=== PATIENT | female | born 1990 | race Two or more races ===

== ENCOUNTER 2020-01-29 09:01 | Inpatient (IN) ==
[2020-01-29] MEDS ORDERED: CEFAZOLIN 2000MG 2,000 MG/15 ML SYR IV SCH (09:15)
[2020-01-29] MEDS ORDERED: LACTATED RINGER'S 1,000 ML IV SCH (09:15)
[2020-01-29] MEDS ORDERED: OXYTOCIN 30 UNITS/500 ML BAG IV PRN ×3 (09:22→23:19)
[2020-01-29 09:32] LABS: Basophils # (auto) 0.01 K/uL (0-0.2); Basophils % (auto) 0.2 %; Eosinophils # (auto) 0.05 K/uL (0-0.5); Eosinophils % (auto) 0.8 %; Hematocrit (blood only) 38.9 % (37-47); Hemoglobin 13.4 g/dL (12.0-16.0); Lymphocytes # (auto) 1.32 K/uL (1.2-3.4); Lymphocytes % (auto) 22.2 %; Mean Corpuscular Hemoglobin 31.7 pg (25-34); Mean Platelet Volume 10.8 fL (7.4-10.4); Monocytes # (auto) 0.51 K/uL (0.11-0.59); Monocytes % (auto) 8.6 %; Neutrophils # (auto) 4.06 K/uL (1.4-6.5); Neutrophils % (auto) 68.2 %; Platelet Count 226 K/uL (130-400); RDW Coefficient of Variation 12.9 % (11.5-14.5); RDW Standard Deviation 43.4 fL (36.4-46.3); Red Blood Count 4.23 M/uL (4.2-5.4); White Blood Count 5.95 K/uL (4.8-10.8)
--- NOTE | 2020-01-29 09:34 | History & Physical Report ---
Date of Service January 29, 2020 Assessment & Plan (1) Supervision of normal intrauterine in primigravida: (2) GBS (group B Streptococcus carrier), +RV culture, currently : (3) Unstable lie of fetus: admit, iv, labs. given now cephalic but high, rec induction with pitocin t o try to keep cephalic in pelvis. pt agreeable. pcn for gbs. discussed mgmt of pain in labor. spouse and pt deny further questions. she did originally ask about leaving and waiting and i told her she could but my concern is that the baby would turn again and would moreso rec induction now. she agrees. fhts categ 1. Admission and Anticipated Discharge Date Admission Date: January 29, 2020 History of Present Illness Chief Complaint: planned c/s for breech. Primary Care Provider: [facility] 29yo at 40+wks sheri presents to L&D for above cc. She was found to be breech yesterday at office and counseld re: ECV vs. direct c/s. Overnight she called MD application architect and indicated she did not want ECV, just wanted c/s. Denies rom, vb. ctx. She is nervous. PNC c/b 1. GBS pos 2. malpresentation PNL rh pos, ri, gbs neg All Active Problems (Updated 01/29/20 @ 09:32 by Jane Ram MD, FACOG) Back pain affecting GBS (group B Streptococcus carrier), +RV culture, currently H/O miscarriage, currently Supervision of normal intrauterine in primigravida Allergies Allergy/AdvReac Type Severity Reaction Status Date / Time No Known Allergies Allergy Verified 01/28/20 09:36 Home Medications Home Medications Medication Instructions Recorded Confirmed Type prenat.vits,je,epv-sluh-afchj 1 tab PO DAILY 06/17/19 01/29/20 History cephalexin [Keflex] 500 mg PO Q6H 7 Days #28 cap 01/26/20 01/29/20 Rx Patient History Medical History (Updated 01/29/20 @ 09:36 by Jane Ram MD, FACOG) Encounter for pre-operative examination Missed No pertinent past medical history Varicella Surgical History No pertinent past surgical history Family History (Updated 01/29/20 @ 09:07 by Morena Merlos RN) Father Hypertension Social History (Updated 06/17/19 @ 10:58 by Arabella Magdaleno) Smoking Status: Never smoker Second Hand Exposure: No; Hx Alcohol Use: No Hx Substance Use: No Preferred Language: Mexican Communication Ability: Impaired marital status: marital status details: Ana Johansen (30) [phone] Current Living Situation: Spouse current occupational status: student 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 @ [employer] Feels Safe at Home: Yes OB History SAB x 1 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 no 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 Review of Systems per hpi Physical Exam Constitutional: WD/WN, vitals as above Respiratory: normal respiratory effort, lungs clear to auscultation Cardiovascular: Rate/Rhythm: regular rate and regular rhythm Gastrointestinal (Abdomen): Percussion/Palpation: abdomen soft (gravid); abdomen nontender Musculoskeletal: nt calves Neurologic: grossly normal Psychiatric: A+Ox3, euthymic affect Genitourinary: normal external appearance OB Exam Abdomen: + vertex (by U/S) and + estimated weight (7-8#) Manual OB Exam: + cervical dilation (2), + cervical effacement 50% and + station high OB Exam Monitor Tracing: + external FHT monitor used (125 mod variability reactive), + external uterine monitor used (irrit), + category I and + normal FHT variability Coding Level of Care Code None Diagnoses Supervision of normal intrauterine in primigravida Z34.00 GBS (group B Streptococcus carrier), +RV culture, currently O99.820 Unstable lie of fetus O32.0XX0
[2020-01-29 09:44] LABS: Mean Corpuscular Hgb Conc 34.4 g/dL (32-36)
--- NOTE | 2020-01-29 09:58 | Medical Student H&P ---
Date of Service January 29, 2020 Assessment & Plan Admission and Anticipated Discharge Date Admission Date: January 29, 2020 1) Unstable lie: Continue to monitor, begin induction with pitocin. Administer epidural/pain meds per patient request. It was discussed that fetus could ptoentially turn again in utero. 2) Normal intrauterine : Continue to monitor. External fHT monitor + external uterine monitor History of Present Illness Chief Complaint: CC: C/S for breech presentation Primary Care Provider: [facility] Julián is a 29 year old at 40wk 08/04 who presented today for a , as her baby was found to be in breech position yesterday. ECV was discussed as an option, but patient opted for C/S instead. L&D US this morning, showed that fetus is now in vertex position. Potential for fetus to return to breech was discussed. Julián and partner have agreed to begin induction. She seems nervous GBS +, +RV culture, rh + Allergies Allergy/AdvReac Type Severity Reaction Status Date / Time No Known Allergies Allergy Verified 01/28/20 09:36 Home Medications Home Medications Medication Instructions Recorded Confirmed Type prenat.vits,je,dsr-igix-ikuij 1 tab PO DAILY 06/17/19 01/29/20 History cephalexin [Keflex] 500 mg PO Q6H 7 Days #28 cap 01/26/20 01/29/20 Rx Patient History Medical History (Updated 01/29/20 @ 09:36 by Jane Ram MD, FACOG) Encounter for pre-operative examination Missed No pertinent past medical history Varicella Surgical History No pertinent past surgical history Family History (Updated 01/29/20 @ 09:07 by Morena Merlos RN) Father Hypertension Social History Smoking Status: Never smoker Second Hand Exposure: No; Hx Alcohol Use: No Hx Substance Use: No Preferred Language: Macanese Communication Ability: Effective [employer] Labourer Required: No Beliefs That Will Affect Care: None marital status: marital status details: Ana Johansen (30) [phone] Current Living Situation: Spouse current occupational status: student 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 @ [employer] Other Information That Helps Us Care for You: No Feels Safe at Home: Yes Assistive Devices: None OB History Hx spontaneous HEAD OF ACQUISITIONS History No Hx STDs Review of Systems All systems reviewed & are unremarkable except as noted in HPI & below no fever/chills no blurry vision or spots or eye pain no cough or difficulty breathing Additional Comments: no chest pain no nausea/vomiting no joint pain/muscle weakness no numbness or other abnormality noted seems slightly nervous about delivery Physical Exam Physical Exam: cardiac: RRR, Normla S1/S2 Resp: lungs CTA bilat GI: Abdomen soft, gravid, non tender Neurologic: Alert and oriented. Grossly normal MSK: Minimal pedal edema noted. Calves non tender : + vertex by US, +cervical effacement and dilitation Results & Data ([facility]) Vital Signs (Past 12 Hours) BP: 111/63 Pulse: 125 Resp: 20 Temp: 36.8
[2020-01-29] MEDS ORDERED: PENICILLIN G POTASSIUM 6 MU in DEXTROSE 5% 250 ML IV ONE (10:00)
[2020-01-29] MEDS: LACTATED RINGER'S 1,000 ML IV PRN ×3 (10:04→21:34)
[2020-01-29] MEDS: PENICILLIN G POTASSIUM 3 MU in DEXTROSE 5% 100 ML IV PRN ×3 (13:43→21:34)
[2020-01-29] MEDS ORDERED: ACETAMINOPHEN 325 MG TAB PO ONE (14:18)
[2020-01-29] MEDS: LACTATED RINGER'S 1,000 ML IV SCH (14:52)
--- NOTE | 2020-01-29 16:33 | Labor Progress Brief Note ---
Date of Service January 29, 2020 Subjective Reason For Note: Routine Evaluation called by nurse as pt now with regular ctx that are painful. Assessment & Plan (1) Supervision of normal intrauterine in primigravida: (2) GBS (group B Streptococcus carrier), +RV culture, currently : arom performed. pt to not ambulate until exam again. c/ w pit, fhts categ1 . Admission and Anticipated Discharge Date Admission Date: January 29, 2020 Physical Exam Constitutional: WD/WN, vitals as above Genitourinary: Manual OB Exam: + cervical dilation (2-3), + cervical effacement 70%, + station high and + amniotic fluid (amniocot, used to arom. ) clear OB Exam Monitor Tracing: + external FHT monitor used (130 mod variability, ), + external uterine monitor used (q2), + category I and + normal FHT variability Results & Data ([place]) Vital Signs (Past 12 Hours) Vital Signs Temp Pulse Resp BP 01/29/20 16:30 95 H 109/67 01/29/20 15:18 77 112/70 01/29/20 15:10 98.2 F 20 01/29/20 14:18 80 119/69 01/29/20 13:18 82 20 131/79 01/29/20 12:17 86 20 117/74 01/29/20 11:17 83 20 110/62 01/29/20 10:17 82 20 113/59 L 01/29/20 09:10 98.2 F 125 H 20 111/63 01/29/20 09:03 98.2 F 20 Coding Level of Care Code None Diagnoses Supervision of normal intrauterine in primigravida Z34.00 GBS (group B Streptococcus carrier), +RV culture, currently O99.820
--- NOTE | 2020-01-29 16:48 | Labor Progress Brief Note ---
Date of Service January 29, 2020 Subjective Reason For Note: Requested By RN fhts decreased, pit was off by time i was in room. nurse applying O2 Assessment & Plan (1) GBS (group B Streptococcus carrier), +RV culture, currently : (2) Supervision of normal intrauterine in primigravida: (3) Unstable lie of fetus: cephalic on exam. fhts now improved. will resume pitocin after watching fetus for about 30min if stable. fse explained to couple. explained our interventions and reasons why. pcn for gbs. Admission and Anticipated Discharge Date Admission Date: January 29, 2020 Physical Exam Constitutional: WD/WN, vitals as above Genitourinary: OB Exam Abdomen: + vertex Manual OB Exam: + cervical dilation 3 cm, + cervical effacement 80% and + station -2 OB Exam Monitor Tracing: + external FHT monitor used (fhts ? 80s when in room, +scalp stim response), + scalp electrode used (140s with fse) and + external uterine monitor used (q2) Results & Data ([place]) Vital Signs (Past 12 Hours) Vital Signs Temp Pulse Resp BP 01/29/20 16:30 95 H 109/67 01/29/20 15:18 77 112/70 01/29/20 15:10 98.2 F 20 01/29/20 14:18 80 119/69 01/29/20 13:18 82 20 131/79 01/29/20 12:17 86 20 117/74 01/29/20 11:17 83 20 110/62 01/29/20 10:17 82 20 113/59 L 01/29/20 09:10 98.2 F 125 H 20 111/63 01/29/20 09:03 98.2 F 20 Coding Level of Care Code None Diagnoses GBS (group B Streptococcus carrier), +RV culture, currently O99.820 Supervision of normal intrauterine in primigravida Z34.00 Unstable lie of fetus O32.0XX0
--- NOTE | 2020-01-29 18:35 | Labor Progress Brief Note ---
Date of Service January 29, 2020 Subjective Reason For Note: Requested By Patient pt notes feeling ctx. feels her fluid leaking and wants to see if everything ok. she is wondering if i can stretch her cervix and make sure head still down because she feels lump in her left upper quad Assessment & Plan (1) Supervision of normal intrauterine in primigravida: (2) GBS (group B Streptococcus carrier), +RV culture, currently : (3) Unstable lie of fetus: reassured patient that baby is still cephalic. rec we cont with pitocin. i don't rec reexamining her at this time due to recent exam and not really an expectation for something different. explained how with water broken we do try to limit exams. fhts categ 1. they also ask about timing of epidural--explained can request anytime, since we are giving her labor with pitocin, really up to her. Admission and Anticipated Discharge Date Admission Date: January 29, 2020 Physical Exam Constitutional: WD/WN, vitals as above Genitourinary: OB Exam Abdomen: + vertex (by U/S) OB Exam Monitor Tracing: + external FHT monitor used (125 mod variability), + external uterine monitor used (q2), + category I and + normal FHT variability Results & Data ([place]) Vital Signs (Past 12 Hours) Vital Signs Temp Pulse Resp BP Pulse Ox 01/29/20 18:29 78 97 01/29/20 18:24 76 97 01/29/20 18:19 78 98 01/29/20 18:17 76 110/64 01/29/20 18:14 89 97 01/29/20 18:09 78 98 01/29/20 18:04 82 98 01/29/20 17:59 75 98 01/29/20 17:54 78 99 01/29/20 17:49 77 96 01/29/20 17:44 80 98 01/29/20 17:39 84 96 01/29/20 17:17 77 113/59 L 01/29/20 16:30 98.2 F 95 H 20 109/67 01/29/20 15:18 77 112/70 01/29/20 15:10 98.2 F 20 01/29/20 14:18 80 119/69 01/29/20 13:18 82 20 131/79 01/29/20 12:17 86 20 117/74 01/29/20 11:17 83 20 110/62 01/29/20 10:17 82 20 113/59 L 01/29/20 09:10 98.2 F 125 H 20 111/63 01/29/20 09:03 98.2 F 20 Coding Level of Care Code None Diagnoses Supervision of normal intrauterine in primigravida Z34.00 GBS (group B Streptococcus carrier), +RV culture, currently O99.820 Unstable lie of fetus O32.0XX0
[2020-01-29] MEDS ORDERED: ePHEDrine sulfate 50 MG/ML AMP ONE (18:47)
[2020-01-29] MEDS ORDERED: BUPIVACAINE 0.25% 30 ML VIAL ONE (18:48)
[2020-01-29] MEDS ORDERED: fentaNYL 2MCG/ML ROPIV 1.25MG/ML 100 ML BAG EPI ONE (18:48)
[2020-01-29] MEDS ORDERED: fentaNYL citrate 100 MCG/2 ML VIAL ONE (18:48)
[2020-01-29] MEDS ORDERED: ONDANSETRON INJ 2 MG/ML 2 ML VIAL IV PRN (19:42)
[2020-01-29] MEDS ORDERED: NALOXONE HCL 1 MG in SODIUM CHLORIDE 0.9% 1000ML 1,000 ML IV PRN (19:42)
[2020-01-29] MEDS ORDERED: ePHEDrine sulfate 50 MG/ML AMP IV PRN (19:42)
[2020-01-29] MEDS ORDERED: DiphenhydrAMINE HCL 50 MG/ML VIAL IV PRN (19:42)
[2020-01-29] MEDS ORDERED: PROMETHAZINE HCL 6.25 MG in SODIUM CHLORIDE 0.9% 50 ML IV PRN (19:42)
[2020-01-29] MEDS ORDERED: NALOXONE HCL 0.4 MG/1 ML VIAL/CARP IV PRN (19:42)
--- NOTE | 2020-01-29 19:42 | Anesthesiology Consultation ---
Date of Service January 29, 2020 Assessment & Plan (1) Encounter for pre-operative examination: Chart Review Chart Review: Patient NOT seen in Pre Admission Testing and Acceptable Risk for Labor Epidural Consults Requested none ASA ASA2 Proposed Anesthesia Anesthesia Type: Labor Epidural Risk / Benefits Reviewed With: PT / POA / Parent / Guardian, Accepts Plan and Informed Consent Obtained History Height/Weight Height: 5 ft 4 in Weight: 79.746 kg Allergies Allergy/AdvReac Type Severity Reaction Status Date / Time No Known Allergies Allergy Verified 01/28/20 09:36 Medications Home Medications Medication Instructions Recorded Confirmed Last Taken prenat.vits,je,nkr-jluq-iguoe 1 tab PO DAILY 06/17/19 01/29/20 01/27/20 08:00 cephalexin [Keflex] 500 mg PO Q6H 7 Days #28 cap 01/26/20 01/29/20 01/28/20 22:00 Active Medications Generic Name Dose Route Start Last Admin Trade Name Freq PRN Reason Stop Dose Admin Lactated Ringer's 1,000 mls @ 125 mls/hr 01/29/20 10:07 01/29/20 14:52 Lr IV 02/28/20 10:06 Not Given .Q8H REBECCA Lactated Ringer's 1,000 mls @ 125 mls/hr 01/29/20 09:22 01/29/20 19:23 Lr IV 01/31/20 09:21 125 mls/hr .Q8H PRN Infusion L&D Protocol Protocol Penicillin G Potassium 3 mu/ 106 mls @ 100 mls/hr 01/29/20 09:22 01/29/20 17: 43 Dextrose IV 02/08/20 09:21 100 mls/hr Q4H PRN Administration Give until delivery Oxytocin 30 units in 500 mls @ 12 mls/hr 01/29/20 09:45 01/29/20 19:20 Pitocin IV 01/31/20 09:44 0.72 units/hr .Q24H PRN 12 mls/hr Labor Induction/Augmentation Titration Protocol 0.72 UNITS/HR NPO Date Last Intake of Fluids: 01/29/20 Time Last Intake of Fluids: 17:00 Date Last Intake of Solids: 01/28/20 Time Last Intake of Solids: 21:00 Past Medical History Medical History (Updated 01/29/20 @ 09:36 by Jane Ram MD, FACOG) Encounter for pre-operative examination Missed No pertinent past medical history Varicella Exercise / Class Metabolic Activity II 4-5 Yardwork/Stairs/Walk up hill Past Family History Family History (Updated 01/29/20 @ 09:07 by Morena Merlos, JIM) Father Hypertension Past Surgical History Surgical History No pertinent past surgical history Past Anesthesia History No Hx of Anesthesia Complications and No Family Hx of Anesthesia Complications History of PONV No Hx of PONV and No Hx of Motion Sickness Social History Smoking Status: Never smoker Hx Alcohol Use: No Hx Substance Use: No substance use type: does not use Physical Exam Vital Signs Last Vital Signs Temp 36.8 C 01/29/20 16:30 Pulse 75 01/29/20 19:39 Resp 20 01/29/20 16:30 BP 108/57 L 01/29/20 19:36 Pulse Ox 97 01/29/20 19:39 ENMT Mouth: no dentition abnormality Thyromental Distance: > or= 3.5 Finger Breadths Mallampati Class: II Neck normal visual inspection Respiratory normal respiratory effort Auscultation: lungs clear to auscultation bilaterally Cardiovascular Rate/Rhythm: regular rate and regular rhythm Psychiatric Orientation: alert Testing Laboratory Results 01/29/20 09:23 Blood Type O Positive 01/29/20 09:23 Antibody Screen NEGATIVE 01/29/20 09:23
--- NOTE | 2020-01-29 21:36 | Labor Progress Brief Note ---
Date of Service January 29, 2020 Subjective Reason For Note: Routine Evaluation pt comfortable. ctx regular but difficult to assess strength due to her size, nursing request iupc if cx not much changed. Assessment & Plan (1) Supervision of normal intrauterine in primigravida: (2) GBS (group B Streptococcus carrier), +RV culture, currently : (3) Unstable lie of fetus: c/w pit, monitor mvu's, fhts categ 1. small cx change. reviewed with couple need to take time. Addendum: nursing came out to tell me she shut off pit due to concern for ctx. mvu's >200 after iupc placed. fetus with ? early decels,? late. variabilty good. will give 30min for in utero resuscitation and then restart pitocin at 1/2. couple made aware by nursing that i am aware of the situation as i was busy attending to other patients. Admission and Anticipated Discharge Date Admission Date: January 29, 2020 Physical Exam Constitutional: WD/WN, vitals as above Genitourinary: Manual OB Exam: + cervical dilation (3-4), + cervical effacement (75%) and + station -2 OB Exam Monitor Tracing: + scalp electrode used (130 mod variability), + external uterine monitor used (q2), + intra-uterine pressure catheter used (placed), + category I and + normal FHT variability Results & Data ([facility]) Vital Signs (Past 12 Hours) Vital Signs Temp Pulse Resp BP Pulse Ox 01/29/20 21:29 60 100 01/29/20 21:25 66 108/62 01/29/20 21:24 68 100 01/29/20 21:19 64 98 01/29/20 21:14 65 99 01/29/20 21:10 69 109/53 L 01/29/20 21:09 61 98 01/29/20 21:04 81 97 01/29/20 20:59 77 95 01/29/20 20:56 85 93/53 L 01/29/20 20:54 75 95 01/29/20 20:49 69 95 01/29/20 20:46 20 01/29/20 20:44 77 96 01/29/20 20:39 77 102/56 L 97 01/29/20 20:34 82 96 01/29/20 20:31 20 01/29/20 20:29 76 95 01/29/20 20:24 73 97 01/29/20 20:22 74 113/70 01/29/20 20:19 76 97 01/29/20 20:14 73 118/67 99 01/29/20 20:12 66 117/66 01/29/20 20:09 73 100 01/29/20 20:06 71 118/81 01/29/20 20:04 73 98 01/29/20 20:01 20 01/29/20 20:00 71 120/65 01/29/20 19:59 84 100 01/29/20 19:56 72 113/73 01/29/20 19:54 85 99 01/29/20 19:50 74 112/59 L 01/29/20 19:49 75 99 01/29/20 19:46 76 20 110/55 L 01/29/20 19:44 73 98 01/29/20 19:41 74 107/60 01/29/20 19:39 75 97 01/29/20 19:36 98.2 F 74 108/57 L 01/29/20 19:34 74 97 01/29/20 19:31 78 110/58 L 01/29/20 19:29 76 104/56 L 98 01/29/20 19:27 77 104/58 L 01/29/20 19:25 76 101/61 01/29/20 19:24 80 98 01/29/20 19:23 75 99/57 L 01/29/20 19:21 78 107/57 L 01/29/20 19:19 90 101/60 98 01/29/20 19:17 74 112/58 L 01/29/20 19:15 71 110/65 01/29/20 19:14 76 99 01/29/20 19:13 73 112/69 01/29/20 19:09 75 100 01/29/20 19:04 90 99 01/29/20 18:59 79 98 01/29/20 18:54 76 99 01/29/20 18:49 76 99 01/29/20 18:44 74 98 01/29/20 18:39 81 97 01/29/20 18:34 80 97 01/29/20 18:29 78 97 01/29/20 18:24 76 97 01/29/20 18:19 78 98 01/29/20 18:17 76 110/64 01/29/20 18:14 89 97 01/29/20 18:09 78 98 01/29/20 18:04 82 98 01/29/20 17:59 75 98 01/29/20 17:54 78 99 01/29/20 17:49 77 96 01/29/20 17:44 80 98 01/29/20 17:39 84 96 01/29/20 17:30 98.4 F 20 01/29/20 17:17 77 113/59 L 01/29/20 16:30 98.2 F 95 H 20 109/67 01/29/20 15:18 77 112/70 01/29/20 15:10 98.2 F 20 01/29/20 14:18 80 119/69 01/29/20 13:18 82 20 131/79 01/29/20 12:17 86 20 117/74 01/29/20 11:17 83 20 110/62 01/29/20 10:17 82 20 113/59 L Coding Level of Care Code None Diagnoses Supervision of normal intrauterine in primigravida Z34.00 GBS (group B Streptococcus carrier), +RV culture, currently O99.820 Unstable lie of fetus O32.0XX0
[2020-01-30] MEDS: PENICILLIN G POTASSIUM 3 MU in DEXTROSE 5% 100 ML IV PRN ×3 (01:30→09:24)
[2020-01-30] MEDS ORDERED: OR MISCELLANEOUS MED XX ONE (03:30)
--- NOTE | 2020-01-30 03:37 | Labor Progress Brief Note ---
Date of Service January 30, 2020 Subjective Reason For Note: Routine Evaluation feels some pressure. Assessment & Plan (1) Supervision of normal intrauterine in primigravida: (2) GBS (group B Streptococcus carrier), +RV culture, currently : good cx change. will attempt amnioinfusion as sometimes variables deep and remote from delivery. fhts categ 2. explained all to patient and partner. c/w pitocin. Admission and Anticipated Discharge Date Admission Date: January 29, 2020 Physical Exam Constitutional: WD/WN, vitals as above Genitourinary: Manual OB Exam: + cervical dilation (6), + cervical effacement 80% and + station 0 OB Exam Monitor Tracing: + scalp electrode used (130 mod variability), + intra-uterine pressure catheter used (q2-3), + category II, + normal FHT variability and + variable decelerations Results & Data ([facility]) Vital Signs (Past 12 Hours) Vital Signs Temp Pulse Resp BP Pulse Ox 01/30/20 03:29 73 100 01/30/20 03:25 67 116/69 01/30/20 03:24 74 100 01/30/20 03:19 76 99 01/30/20 03:14 82 99 01/30/20 03:11 74 108/59 L 01/30/20 03:09 78 97 01/30/20 03:04 79 98 01/30/20 02:59 77 98 01/30/20 02:55 72 91/56 L 01/30/20 02:54 71 98 01/30/20 02:49 78 97 01/30/20 02:44 80 99 01/30/20 02:40 63 108/59 L 01/30/20 02:39 64 96 01/30/20 02:34 74 95 01/30/20 02:31 80 94 01/30/20 02:29 92 H 95 01/30/20 02:24 96 H 92/54 L 96 01/30/20 02:19 76 96 01/30/20 02:14 75 95 01/30/20 02:10 70 120/63 01/30/20 02:09 71 96 01/30/20 02:04 77 95 01/30/20 01:59 76 96 01/30/20 01:54 70 117/65 96 01/30/20 01:49 79 96 01/30/20 01:44 85 95 01/30/20 01:41 77 94 01/30/20 01:39 91 H 104/56 L 95 01/30/20 01:35 74 94 01/30/20 01:34 74 95 01/30/20 01:30 98.2 F 18 01/30/20 01:29 109 H 96 01/30/20 01:25 63 105/59 L 01/30/20 01:24 76 95 01/30/20 01:19 76 95 01/30/20 01:15 76 94 01/30/20 01:14 91 H 96 01/30/20 01:10 79 114/55 L 01/30/20 01:09 79 96 01/30/20 01:04 77 95 01/30/20 01:03 77 94 01/30/20 00:59 92 H 94 01/30/20 00:55 103 H 82/50 L 01/30/20 00:54 68 95 01/30/20 00:51 87 93 01/30/20 00:49 110 H 94 01/30/20 00:45 108 H 94 01/30/20 00:44 79 95 01/30/20 00:39 109 H 86/50 L 94 01/30/20 00:36 80 92 01/30/20 00:34 75 95 01/30/20 00:30 70 94 01/30/20 00:29 73 95 01/30/20 00:25 75 108/57 L 01/30/20 00:24 72 94 01/30/20 00:19 76 94 01/30/20 00:14 75 96 01/30/20 00:09 96 H 92/54 L 97 01/30/20 00:04 72 96 01/29/20 23:59 88 97 01/29/20 23:55 68 125/59 L 01/29/20 23:54 75 94 01/29/20 23:49 72 97 01/29/20 23:44 75 98 01/29/20 23:39 110 H 108/57 L 96 01/29/20 23:34 107 H 98 01/29/20 23:30 98.2 F 18 01/29/20 23:29 82 97 01/29/20 23:25 76 107/55 L 01/29/20 23:24 79 96 01/29/20 23:21 75 94 01/29/20 23:19 92 H 97 01/29/20 23:14 71 96 01/29/20 23:09 74 118/60 97 01/29/20 23:04 76 97 01/29/20 23:01 20 01/29/20 22:59 84 98 01/29/20 22:54 73 109/63 97 01/29/20 22:49 70 96 01/29/20 22:44 68 98 01/29/20 22:41 77 120/71 01/29/20 22:39 72 96 01/29/20 22:34 70 97 01/29/20 22:31 20 01/29/20 22:29 60 97 01/29/20 22:24 60 111/62 97 01/29/20 22:19 76 97 01/29/20 22:14 79 97 01/29/20 22:09 64 111/62 98 01/29/20 22:04 74 98 01/29/20 22:01 20 01/29/20 21:59 70 98 01/29/20 21:55 74 111/57 L 01/29/20 21:54 76 97 01/29/20 21:49 75 98 01/29/20 21:44 69 98 01/29/20 21:39 76 100 01/29/20 21:34 63 100 01/29/20 21:31 98.1 F 20 01/29/20 21:29 60 100 01/29/20 21:25 66 108/62 01/29/20 21:24 68 100 01/29/20 21:19 64 98 01/29/20 21:14 65 99 01/29/20 21:10 69 109/53 L 01/29/20 21:09 61 98 01/29/20 21:04 81 97 01/29/20 21:01 20 01/29/20 20:59 77 95 01/29/20 20:56 85 93/53 L 01/29/20 20:54 75 95 01/29/20 20:49 69 95 01/29/20 20:46 20 01/29/20 20:44 77 96 01/29/20 20:39 77 102/56 L 97 01/29/20 20:34 82 96 01/29/20 20:31 20 01/29/20 20:29 76 95 01/29/20 20:24 73 97 01/29/20 20:22 74 113/70 01/29/20 20:19 76 97 01/29/20 20:14 73 118/67 99 01/29/20 20:12 66 117/66 01/29/20 20:09 73 100 01/29/20 20:06 71 118/81 01/29/20 20:04 73 98 01/29/20 20:01 20 01/29/20 20:00 71 120/65 01/29/20 19:59 84 100 01/29/20 19:56 72 113/73 01/29/20 19:54 85 99 01/29/20 19:50 74 112/59 L 01/29/20 19:49 75 99 01/29/20 19:46 76 20 110/55 L 01/29/20 19:44 73 98 01/29/20 19:41 74 107/60 01/29/20 19:39 75 97 01/29/20 19:36 98.2 F 74 108/57 L 01/29/20 19:34 74 97 01/29/20 19:31 78 110/58 L 01/29/20 19:29 76 104/56 L 98 01/29/20 19:27 77 104/58 L 01/29/20 19:25 76 101/61 01/29/20 19:24 80 98 01/29/20 19:23 75 99/57 L 01/29/20 19:21 78 107/57 L 01/29/20 19:19 90 101/60 98 01/29/20 19:17 74 112/58 L 01/29/20 19:15 71 110/65 01/29/20 19:14 76 99 01/29/20 19:13 73 112/69 01/29/20 19:09 75 100 01/29/20 19:04 90 99 01/29/20 18:59 79 98 01/29/20 18:54 76 99 01/29/20 18:49 76 99 01/29/20 18:44 74 98 01/29/20 18:39 81 97 01/29/20 18:34 80 97 01/29/20 18:29 78 97 01/29/20 18:24 76 97 10/01/20 18:19 78 98 01/29/20 18:17 76 110/64 01/29/20 18:14 89 97 01/29/20 18:09 78 98 01/29/20 18:04 82 98 01/29/20 17:59 75 98 01/29/20 17:54 78 99 01/29/20 17:49 77 96 01/29/20 17:44 80 98 01/29/20 17:39 84 96 01/29/20 17:30 98.4 F 20 01/29/20 17:17 77 113/59 L 01/29/20 16:30 98.2 F 95 H 20 109/67 Coding Level of Care Code None Diagnoses Supervision of normal intrauterine in primigravida Z34.00 GBS (group B Streptococcus carrier), +RV culture, currently O99.820
[2020-01-30] MEDS: fentaNYL 2MCG/ML ROPIV 1.25MG/ML 100 ML BAG EPI PRN ×2 (03:47→11:13)
[2020-01-30] MEDS: LACTATED RINGER'S 1,000 ML IV PRN (07:17)
--- NOTE | 2020-01-30 07:44 | Labor Progress Brief Note ---
Date of Service January 30, 2020 Subjective Reason For Note: Routine Evaluation pt with some abdominal pain and back pain. no rectal pressure Assessment & Plan (1) Supervision of normal intrauterine in primigravida: (2) GBS (group B Streptococcus carrier), +RV culture, currently : (3) Unstable lie of fetus: good cx change. c/w pit Admission and Anticipated Discharge Date Admission Date: January 29, 2020 Physical Exam Constitutional: WD/WN, vitals as above Psychiatric: A+Ox3, euthymic affect Genitourinary: Manual OB Exam: + cervical dilation 8 cm, + cervical effacement 100% and + station 0 OB Exam Monitor Tracing: + scalp electrode used (125 mod variability, reactive), + intra-uterine pressure catheter used (on pit), + category I and + normal FHT variability Results & Data ([facility]) Vital Signs (Past 12 Hours) Vital Signs Temp Pulse Resp BP Pulse Ox 01/30/20 07:39 74 125/80 100 01/30/20 07:34 66 100 01/30/20 07:29 65 100 01/30/20 07:24 70 127/78 100 01/30/20 07:19 64 100 01/30/20 07:14 71 100 01/30/20 07:10 99.0 F 73 20 119/75 01/30/20 07:09 82 100 01/30/20 07:04 77 97 01/30/20 06:59 71 96 01/30/20 06:54 82 112/61 96 01/30/20 06:49 77 96 01/30/20 06:44 70 96 01/30/20 06:39 80 119/60 96 01/30/20 06:34 77 95 01/30/20 06:29 77 96 01/30/20 06:24 102 H 102/60 97 01/30/20 06:19 79 97 01/30/20 06:14 75 97 01/30/20 06:09 91 H 101/61 99 01/30/20 06:04 92 H 98 01/30/20 05:59 75 96 01/30/20 05:56 62 116/66 01/30/20 05:54 68 96 01/30/20 05:49 76 96 01/30/20 05:44 74 97 01/30/20 05:39 108 H 120/62 99 01/30/20 05:34 81 96 01/30/20 05:30 98.4 F 18 01/30/20 05:29 70 97 01/30/20 05:25 62 113/74 01/30/20 05:24 62 97 01/30/20 05:19 82 98 01/30/20 05:14 116 H 95 01/30/20 05:09 63 117/68 98 01/30/20 05:04 69 97 01/30/20 05:00 18 01/30/20 04:59 85 95 01/30/20 04:54 76 119/71 96 01/30/20 04:49 73 95 01/30/20 04:44 84 96 01/30/20 04:39 100 H 98/55 L 97 01/30/20 04:34 75 96 01/30/20 04:30 18 01/30/20 04:29 74 97 01/30/20 04:24 70 117/60 98 01/30/20 04:19 75 99 01/30/20 04:14 73 99 01/30/20 04:09 69 122/69 98 01/30/20 04:04 69 99 01/30/20 04:00 18 01/30/20 03:59 70 100 01/30/20 03:54 85 114/68 100 01/30/20 03:49 83 99 01/30/20 03:44 70 99 01/30/20 03:40 62 116/69 01/30/20 03:39 70 99 01/30/20 03:34 71 99 01/30/20 03:30 98.1 F 18 01/30/20 03:29 73 100 01/30/20 03:25 67 116/69 01/30/20 03:24 74 100 01/30/20 03:19 76 99 01/30/20 03:14 82 99 01/30/20 03:11 74 108/59 L 01/30/20 03:09 78 97 01/30/20 03:04 79 98 01/30/20 02:59 77 98 01/30/20 02:55 72 91/56 L 01/30/20 02:54 71 98 01/30/20 02:49 78 97 01/30/20 02:44 80 99 01/30/20 02:40 63 108/59 L 01/30/20 02:39 64 96 01/30/20 02:34 74 95 01/30/20 02:31 80 94 01/30/20 02:29 92 H 95 01/30/20 02:24 96 H 92/54 L 96 01/30/20 02:19 76 96 01/30/20 02:14 75 95 01/30/20 02:10 70 120/63 01/30/20 02:09 71 96 01/30/20 02:04 77 95 01/30/20 01:59 76 96 01/30/20 01:54 70 117/65 96 01/30/20 01:49 79 96 01/30/20 01:44 85 95 01/30/20 01:41 77 94 01/30/20 01:39 91 H 104/56 L 95 01/30/20 01:35 74 94 01/30/20 01:34 74 95 01/30/20 01:30 98.2 F 18 01/30/20 01:29 109 H 96 01/30/20 01:25 63 105/59 L 01/30/20 01:24 76 95 01/30/20 01:19 76 95 01/30/20 01:15 76 94 01/30/20 01:14 91 H 96 01/30/20 01:10 79 114/55 L 01/30/20 01:09 79 96 01/30/20 01:04 77 95 01/30/20 01:03 77 94 01/30/20 00:59 92 H 94 01/30/20 00:55 103 H 82/50 L 01/30/20 00:54 68 95 01/30/20 00:51 87 93 01/30/20 00:49 110 H 94 01/30/20 00:45 108 H 94 01/30/20 00:44 79 95 01/30/20 00:39 109 H 86/50 L 94 01/30/20 00:36 80 92 01/30/20 00:34 75 95 01/30/20 00:30 70 94 01/30/20 00:29 73 95 01/30/20 00:25 75 108/57 L 01/30/20 00:24 72 94 01/30/20 00:19 76 94 01/30/20 00:14 75 96 01/30/20 00:09 96 H 92/54 L 97 01/30/20 00:04 72 96 01/29/20 23:59 88 97 01/29/20 23:55 68 125/59 L 01/29/20 23:54 75 94 01/29/20 23:49 72 97 01/29/20 23:44 75 98 01/29/20 23:39 110 H 108/57 L 96 01/29/20 23:34 107 H 98 01/29/20 23:30 98.2 F 18 01/29/20 23:29 82 97 01/29/20 23:25 76 107/55 L 01/29/20 23:24 79 96 01/29/20 23:21 75 94 01/29/20 23:19 92 H 97 01/29/20 23:14 71 96 01/29/20 23:09 74 118/60 97 01/29/20 23:04 76 97 01/29/20 23:01 20 01/29/20 22:59 84 98 01/29/20 22:54 73 109/63 97 01/29/20 22:49 70 96 01/29/20 22:44 68 98 01/29/20 22:41 77 120/71 01/29/20 22:39 72 96 01/29/20 22:34 70 97 01/29/20 22:31 20 01/29/20 22:29 60 97 01/29/20 22:24 60 111/62 97 01/29/20 22:19 76 97 01/29/20 22:14 79 97 01/29/20 22:09 64 111/62 98 01/29/20 22:04 74 98 01/29/20 22:01 20 01/29/20 21:59 70 98 01/29/20 21:55 74 111/57 L 01/29/20 21:54 76 97 01/29/20 21:49 75 98 01/29/20 21:44 69 98 01/29/20 21:39 76 100 01/29/20 21:34 63 100 01/29/20 21:31 98.1 F 20 01/29/20 21:29 60 100 01/29/20 21:25 66 108/62 01/29/20 21:24 68 100 01/29/20 21:19 64 98 01/29/20 21:14 65 99 01/29/20 21:10 69 109/53 L 01/29/20 21:09 61 98 01/29/20 21:04 81 97 01/29/20 21:01 20 01/29/20 20:59 77 95 01/29/20 20:56 85 93/53 L 01/29/20 20:54 75 95 01/29/20 20:49 69 95 01/29/20 20:46 20 01/29/20 20:44 77 96 01/29/20 20:39 77 102/56 L 97 01/29/20 20:34 82 96 01/29/20 20:31 20 01/29/20 20:29 76 95 01/29/20 20:24 73 97 01/29/20 20:22 74 113/70 01/29/20 20:19 76 97 01/29/20 20:14 73 118/67 99 01/29/20 20:12 66 117/66 01/29/20 20:09 73 100 01/29/20 20:06 71 118/81 01/29/20 20:04 73 98 01/29/20 20:01 20 01/29/20 20:00 71 120/65 01/29/20 19:59 84 100 01/29/20 19:56 72 113/73 01/29/20 19:54 85 99 01/29/20 19:50 74 112/59 L 01/29/20 19:49 75 99 01/29/20 19:46 76 20 110/55 L 01/29/20 19:44 73 98 Coding Level of Care Code None Diagnoses Supervision of normal intrauterine in primigravida Z34.00 GBS (group B Streptococcus carrier), +RV culture, currently O99.820 Unstable lie of fetus O32.0XX0
[2020-01-30] MEDS ORDERED: ACETAMINOPHEN 325 MG TAB PO STA (08:40)
[2020-01-30] MEDS ORDERED: ACETAMINOPHEN 325 MG TAB ONE (08:42)
[2020-01-30] MEDS ORDERED: CITRIC ACID/SODIUM CITRATE 15 ML UDC PO SCH (09:15)
[2020-01-30] MEDS ORDERED: BUPIVACAINE 0.25% 30 ML VIAL ONE (09:21)
[2020-01-30] MEDS ORDERED: HYDROCORTISONE ACETATE 25 MG SUPP PR PRN (13:30)
[2020-01-30] MEDS ORDERED: ACETAMINOPHEN 325 MG TAB PO PRN (13:30)
[2020-01-30] MEDS ORDERED: BENZOCAINE 20% AER SPR 82.5 GM CAN EXT PRN (13:30)
[2020-01-30] MEDS ORDERED: OXYTOCIN 30 UNITS/500 ML BAG IV PRN (13:30)
[2020-01-30] MEDS ORDERED: DIPHTHERIA/TETANUS/PERTUSSIS 0.5 ML SYR/VIAL IM ONE (13:30)
[2020-01-30] MEDS ORDERED: SUPERCREAM 0.870% 15 GM JAR EXT PRN (13:30)
[2020-01-30] MEDS ORDERED: OXYCODONE/ACETAMINOPHEN 5mg/325mg TAB PO PRN (13:30)
[2020-01-30] MEDS ORDERED: bisacodyL 10 MG SUPP PR PRN (13:30)
--- NOTE | 2020-01-30 13:51 | Delivery Summary ---
DATE OF OPERATION: 01/30/2020 The patient is a 29-year-old G1, P0 white female who had presented for initially a section because of breech presentation. Upon presentation in labor and delivery on 01/29/2020 she was noted to be cephalic. She was begun on Pitocin. There were moderate variables that resolved with an amnioinfusion until she began to push. At that point there were moderate variables with each contraction, but good recovery. She was able to bring the baby to +3 station and with consent from the mother and the baby's father a vacuum was placed because of the persistence and worsening of these variable decelerations. It was placed on the vertex. The bladder was straight cathed prior but because of the position of the head no urine could be obtained. Through 2 contractions the head was brought to . A median episiotomy was created because it was already tearing and the 's head then delivered easily. The rest of the delivered easily as well. There was a copious amount of fluid following the baby. The infant was placed on the mother's abdomen for further attention and drying. There was vigorous crying and the was moving all 4 limbs. After 1 minute, the cord was clamped and cut and the placenta was expressed intact with a 3-vessel cord. A third-degree tear was repaired with 2-0 chromic in the usual fashion followed by the remainder of the tear that was repaired with 3-0 chromic. There was a left sulcal tear which was also repaired in the course of this repair. Estimated blood loss was 400 mL. Mother and were doing well after delivery. I attest to the content of the Intraoperative Record and any orders documented therein. Any exception s are noted below.
[2020-01-30] MEDS: LACTATED RINGER'S 1,000 ML IV SCH ×3 (13:59→17:00)
--- NOTE | 2020-01-30 15:19 | Anesthesia Procedure Note ---
Date of Service January 30, 2020 Anesthesia Post Epidural Note Vital Signs Vital Signs: Temp Pulse Resp BP Pulse Ox 37.2 C 109 H 20 113/53 L 94 01/30/20 12:09 01/30/20 15:01 01/30/20 13:30 01/30/20 15:01 01/30/20 12:49 Notes Mental Status: alert / awake / arousable and participated in evaluation Nausea / Vomiting: adequately controlled Pain: adequately controlled Airway Patency, RR, SpO2: stable & adequate BP & HR: stable & adequate Hydration State: stable & adequate Neuraxial Anesthesia: was administered and sensory block is resolving Anesthetic Complications: no major complications apparent and Pt Satisfied with anesthetic care Epidural: Removed without complications and With tip intact Notes: Epidural site clean, dry and intact. No signs of edema, erythema or bruising at insertion site. Pt instructed to request anesthesia if she has residual lower extremity numbness or if she develops lower extremity pain or weakness, back pain or headache.
[2020-01-30] MEDS: IBUPROFEN 600 MG TAB PO PRN (19:20)
[2020-01-30] MEDS: DOCUSATE SODIUM 100 MG CAP PO SCH (20:21)
[2020-01-31 06:48] LABS: Hematocrit (blood only) 25.7 % (37-47); Mean Corpuscular Hemoglobin 32.1 pg (25-34); Mean Corpuscular Volume 91.8 fL (80-100); Mean Platelet Volume 10.6 fL (7.4-10.4); Platelet Count 176 K/uL (130-400); RDW Standard Deviation 43.8 fL (36.4-46.3); White Blood Count 9.97 K/uL (4.8-10.8)
[2020-01-31] MEDS: IBUPROFEN 600 MG TAB PO PRN (08:10)
[2020-01-31] MEDS: PRENATAL VITAMIN 1 TAB PO SCH (08:40)
[2020-01-31] MEDS: DOCUSATE SODIUM 100 MG CAP PO SCH ×2 (08:40→20:13)
--- NOTE | 2020-01-31 08:40 | Obstetrical Progress Note ---
Date of Service January 31, 2020 Assessment & Plan (1) Encounter for care and examination after delivery: 29yo s/p day 1 s/p VAVD. Doing well. Routine care Subjective Ambulation: ambulating normally Voiding: no voiding problems Passing Gas:: Yes Diet Tolerance:: regular diet Lochia:: Moderate Physical Exam Constitutional WD/WN, vitals as above Respiratory normal respiratory effort; no respiratory distress and no labored breathing Gastrointestinal (Abdomen) Inspection/Auscultation: abdomen normal to inspection; abdomen not distended Percussion/Palpation: abdomen soft; abdomen nontender, no guarding and abdomen not rigid Genitourinary OB Exam Abdomen: + fundal height Fundus: + firm and + relation to umbilicus (Below); not tender and not boggy Results & Data ([facility]) Vital Signs (Past 12 Hours) Vital Signs Temp Pulse Resp BP 01/31/20 03:20 36.6 C 87 16 98/67 L 01/30/20 23:50 36.7 C 90 18 109/69
[2020-01-31] MEDS ORDERED: bisacodyL 5 MG TABEC PO SCH (20:00)
[2020-02-01 06:31] LABS: Hematocrit (blood only) 25.2 % (37-47); Hemoglobin 8.7 g/dL (12.0-16.0)
[2020-02-01] MEDS: PRENATAL VITAMIN 1 TAB PO SCH (08:28)
[2020-02-01] MEDS: IBUPROFEN 600 MG TAB PO PRN (08:29)
--- NOTE | 2020-02-01 09:02 | Obstetrical Progress Note ---
Date of Service February 01, 2020 Assessment & Plan (1) Encounter for care and examination after delivery: satiafactory progress D/C to home F/U in 6 weeks Subjective Ambulation: ambulating normally Voiding: no voiding problems Passing Gas:: Yes Diet Tolerance:: regular diet Lochia:: Small Feeding Type:: bottle feeding had 2 loose BM's this am Review of Systems All systems reviewed & are unremarkable except as noted in HPI & below Physical Exam Constitutional WD/WN, vitals as above Psychiatric A+Ox3, euthymic affect Genitourinary OB Exam Abdomen: + fundal height Fundus: + firm and + relation to umbilicus (2 below U) Results & Data ([facility]) Vital Signs (Past 12 Hours) Vital Signs Temp Pulse Resp BP Pulse Ox 02/01/20 00:15 98.8 F 84 18 103/67 98
[2020-02-01] MEDS: DOCUSATE SODIUM 100 MG CAP PO SCH (09:12)
--- NOTE | 2020-02-01 22:49 | Discharge Summary (DS) ---
PRINCIPAL DIAGNOSES: Intrauterine at term, induction of labor with a Vacuum-assisted vaginal delivery, and repair of third-degree tear. HISTORY AND HOSPITAL COURSE: The patient is a 29-year-old 1, para 0 white female, who had presented initially for a section because of breech presentation; however, upon arrival in labor and delivery on 01/29/2020, she was noted to be in the cephalic position. She was begun on Pitocin to start an induction of labor. During the course of that labor, she did have an amnioinfusion because of moderate variables. These resolved with the amnioinfusion. She progressed to full dilation and was pushing effectively, but the variables were getting more severe and persistent. A vacuum-assisted delivery was done with ease. A third-degree tear did occur with the midline episiotomy and this was repaired in the usual fashion. She has had no issues. She has been afebrile. She has had two soft bowel movements this morning. Eating regular diet and is bottle feeding at this time. Hemoglobin was 13.4 on admission. First postop day hemoglobin 9.0, second day hemoglobin at 8.7. She has been sent home with the usual instructions. She is to take Colace 100 mg twice a day for at least the next 2-3 weeks to keep her stool soft because of the third-degree tear. We will see her in the office in 6 weeks for a followup visit, sooner if there are any concerns.
== END 2020-02-01 11:20 | disposition home or self-care (01) | DRG 768 ==
LOC: 4S1 09:01 → EDSTATUS 15:59 → 4S2 01-30 18:50